=== PATIENT | male | born 2000 | race Caucasian/White ===

== ENCOUNTER 2024-01-07 17:39 | Emergency (ER) | payer SELFPAY ==
[~2024-01-07] VITALS: Ht 180.3 cm; Wt 92.9 kg
[2024-01-07 23:15] VITALS: O2SAT 0
[2024-01-07 23:17] VITALS: BP 121/74; PULSE 49; RESP 18; TEMP 97.8
== END 2024-01-07 23:22 | disposition home or self-care (01) ==
LOC: ER 17:39
DX: R51.9 Headache, unspecified (principal); F12.90 Cannabis use, unspecified, uncomplicated
CPT/HCPCS: 70450